=== PATIENT | male | born 1990 | race Caucasian/White ===

== ENCOUNTER 2017-06-12 03:12 | Emergency (ER) | payer SELFPAY ==
[~2017-06-12 03:12] MED LIST: ANAPROX DS550 MG PO; BACTRIM DS 8001 TA1 PO; BACTROBAN CREAM15 GM T; CIPRO500 MG PO; CLARITIN10 MG PO; ERYTHROMYCIN OPH1 GM OPH; HYDROCODONE BIT1 T11 PO; MOTRIN800 MG PO; NAPROSYN500 MG PO; NKHM; NORCO 5-325 TA1 EACH PO; PEN-VEE K500 MG PO; PENICILLIN VK500 MG PO; Peridex 473 ML473 ML PO; SEPTRA DS 800 M1 TAB PO; TRAMADOL HCL50 MG PO; TRIMOX500 MG PO; ULTRAM50 MG PO; ZOFRAN ODT4 MG SL; Zofran4 MG PO
== END 2017-06-12 03:43 | disposition left against medical advice (07) ==
LOC: ED 03:12
DX: Z20.2 Contact with and (suspected) exposure to infections with a predominantly sexual mode of transmission (principal); Z53.21 Procedure and treatment not carried out due to patient leaving prior to being seen by health care provider

== ENCOUNTER 2018-02-25 01:29 | Emergency (ER) | payer SELFPAY ==
[~2018-02-25] VITALS: Ht 162.5 cm; Wt 77.1 kg
[2018-02-25 01:39] VITALS: BP 155/94
[2018-02-25] MEDS ORDERED: FLAGYL500 MG PO (01:42)
== END 2018-02-25 01:57 | disposition home or self-care (01) ==
LOC: ED 01:29
DX: Z20.2 Contact with and (suspected) exposure to infections with a predominantly sexual mode of transmission (principal); Z79.899 Other long term (current) drug therapy

== ENCOUNTER 2020-05-10 11:53 | Emergency (ER) | payer OTHER ==
[~2020-05-10] VITALS: Wt 72.6 kg
[~2020-05-10 11:53] MED LIST changes: +FLAGYL500 MG PO
[2020-05-10 12:21] LABS: BASO # 0.1 10*3/uL (0.0-0.1); BASO % 0.7 % (0.0-1.0); EOS # 0.1 10*3/uL (0.0-0.4); EOS % 0.6 % (1.0-4.0); HEMATOCRIT 47.7 % (42.0-52.0); LYMPH # 1.8 10*3/uL (1.3-4.4); LYMPH % 16.8 % (27.0-41.0); MEAN CELL VOLUME 100.2 fl (80.0-94.0); MEAN PLATELET VOLUME 11.1 fl (9.6-12.3); MONO # 0.9 10*3/uL (0.1-1.0); MONO % 8.6 % (3.0-9.0); NEUT # 7.8 10*3/uL (2.3-7.9); NEUT % 72.9 % (47.0-73.0); PLATELET COUNT AUTOMATED 176 10*3/uL (130-400); RED BLOOD COUNT 4.76 10*6/uL (4.50-5.90); RED CELL DISTRI WIDTH 12.5 % (0-14.5); WHITE BLOOD COUNT 10.7 10*3/uL (4.8-10.8)
[2020-05-10 12:31] LABS: ACT PARTIAL THROMBO TIME 27.2 SECONDS (20.0-32.1)
[2020-05-10 12:37] LABS: ALBUMIN 4.1 gm/dl (3.1-4.5); ALKALINE PHOSPHATASE 80 U/L (45-117); BUN 13 mg/dl (7-24); CHLORIDE 108 mmol/L (98-107); CREATININE 0.95 mg/dL (0.70-1.30); POTASSIUM 4.3 mmol/L (3.5-5.1); SGOT/AST 19 IU/L (3-35); SGPT/ALT 46 U/L (12-78); SODIUM 142 mmol/L (136-145); TOTAL PROTEIN 8.1 gm/dL (6.4-8.2)
[2020-05-10 12:38] LABS: TROPONIN I < 0.015 ng/ml (<0.045)
[2020-05-10 13:54] VITALS: BP 139/84
[2020-05-10] MEDS ORDERED: TYLENOL325 M1 PO (14:50)
[2020-05-10] MEDS ORDERED: NAPROSYN500 MG PO (14:50)
== END 2020-05-10 14:58 | disposition home or self-care (01) ==
LOC: ED 11:53
PROVIDERS: Emergency Medicine
DX: R07.89 Other chest pain (principal); F17.200 Nicotine dependence, unspecified, uncomplicated; Z79.899 Other long term (current) drug therapy

== ENCOUNTER 2020-09-09 01:06 | Emergency (ER) | payer OTHER ==
[~2020-09-09] VITALS: Ht 165.1 cm; Wt 63.5 kg
[2020-09-09 01:15] VITALS: BP 162/87
== END 2020-09-09 01:48 | disposition home or self-care (01) ==
LOC: ED 01:06
DX: B86 Scabies (principal)

== ENCOUNTER 2021-07-09 00:01 | Emergency (ER) | payer OTHER ==
[~2021-07-09] VITALS: Ht 167.6 cm; Wt 68.0 kg
[~2021-07-09 00:01] MED LIST changes: +ELIMITE 5%60 GM T; +TYLENOL325 M1 PO
[2021-07-09 00:13] VITALS: BP 104/68
[2021-07-09] MEDS ORDERED: MOBIC7.5 MG PO (04:30)
== END 2021-07-09 04:31 | disposition home or self-care (01) ==
LOC: ED 00:01
DX: S86.912A Strain of unspecified muscle(s) and tendon(s) at lower leg level, left leg, initial encounter (principal); S09.90XA Unspecified injury of head, initial encounter; F17.200 Nicotine dependence, unspecified, uncomplicated; V29.9XXA Motorcycle rider (driver) (passenger) injured in unspecified traffic accident, initial encounter; Y93.89 Activity, other specified; Y92.89 Other specified places as the place of occurrence of the external cause; Y99.8 Other external cause status